=== PATIENT | male | born 1990 | race Caucasian/White ===

== ENCOUNTER 2016-09-18 17:43 | Emergency (ER) | payer OTHER ==
[~2016-09-18] VITALS: Ht 185.4 cm; Wt 77.1 kg
--- NOTE | 2016-09-18 17:55 | ED Neurological Problem ---
General Chief Complaint: Neurological Problems Stated Complaint: SEIZURE Source: patient Exam Limitations: no limitations History of Present Illness Time seen by provider: 17:53 Initial Comments To ER per EMS from home and normal with reports of seizure-like activity. This began 3 hours after taking 3 tramadol which she took for recreational purposes. He states he's done this before on several occasions without having seizures. He does not have a known seizure disorder. This is not his prescription. He does not want his parents to know about this though they are present in the waiting room. Timing/Duration: 1 week Allergies and Home Medications Allergies Coded Allergies: No Known Drug Allergies (Unverified , 09/18/16) Constitutional: see HPI Eyes: No Symptoms Reported Ears, Nose, Mouth, Throat: no symptoms reported Respiratory: no symptoms reported Cardiovascular: no symptoms reported Genitourinary: no symptoms reported Musculoskeletal: no symptoms reported Skin: no symptoms reported Psychiatric/Neurological: See HPI, Tonic Clonic Seizures Endocrine: No Symptoms Reported Physical Exam Vital Signs Vital Sign - Last 12Hours 09/18/16 17:49 Temp 97.5 Pulse 82 Resp 16 B/P (MAP) 140/86 Pulse Ox 98 Capillary Refill : General Appearance: WD/WN, no apparent distress HEENT: PERRL/EOMI, normal ENT inspection Neck: non-tender, full range of motion Respiratory: normal breath sounds, no respiratory distress, no accessory muscle use Cardiovascular: regular rate, rhythm, no murmur Gastrointestinal: normal bowel sounds, non tender, soft Extremities: normal range of motion, non-tender Neurologic/Psychiatric: alert, normal mood/affect, oriented x 3 Crainal Nerves: normal hearing, normal speech, PERRL Skin: normal color, warm/dry Progress/Results/Core Measures Results/Orders Lab Results Laboratory Tests Test 09/18/16 17:41 09/18/16 17:50 Range/Units Urine Color YELLOW Urine Clarity CLEAR Urine pH 7 5-9 Urine Specific [place] 1.010 L 1.016-1.022 Urine Protein NEGATIVE NEGATIVE Urine Glucose (UA) NEGATIVE NEGATIVE Urine Ketones NEGATIVE NEGATIVE Urine Nitrite NEGATIVE NEGATIVE Urine Bilirubin NEGATIVE NEGATIVE Urine Urobilinogen NORMAL NORMAL MG/DL Urine Leukocyte Esterase NEGATIVE NEGATIVE Urine RBC (Auto) NEGATIVE NEGATIVE Urine RBC RARE /HPF Urine WBC NONE /HPF Urine Crystals NONE /LPF Urine Bacteria NONE /HPF Urine Casts NONE /LPF Urine Mucus NEGATIVE /LPF Urine Culture Indicated NO Urine Opiates Screen NEGATIVE NEGATIVE Urine Oxycodone Screen NEGATIVE NEGATIVE Urine Methadone Screen NEGATIVE NEGATIVE Urine Propoxyphene Screen NEGATIVE NEGATIVE Urine Barbiturates Screen NEGATIVE NEGATIVE Ur Tricyclic Antidepressants Screen NEGATIVE NEGATIVE Urine Phencyclidine Screen NEGATIVE NEGATIVE Urine Amphetamines Screen NEGATIVE NEGATIVE Urine Methamphetamines Screen NEGATIVE NEGATIVE Urine Benzodiazepines Screen NEGATIVE NEGATIVE Urine Cocaine Screen NEGATIVE NEGATIVE Urine Cannabinoids Screen NEGATIVE NEGATIVE White Blood Count 6.0 4.3-11.0 10^3/uL Red Blood Count 5.07 4.35-5.85 10^6/uL Hemoglobin 15.0 13.3-17.7 G/DL Hematocrit 43 40-54 % Mean Corpuscular Volume 85 80-99 FL Mean Corpuscular Hemoglobin 30 25-34 PG Mean Corpuscular Hemoglobin Concent 35 32-36 G/DL Red Cell Distribution Width 13.1 10.0-14.5 % Platelet Count 257 130-400 10^3/uL Mean Platelet Volume 10.3 7.4-10.4 FL Neutrophils (%) (Auto) 50 42-75 % Lymphocytes (%) (Auto) 36 12-44 % Monocytes (%) (Auto) 11 0-12 % Eosinophils (%) (Auto) 2 0-10 % Basophils (%) (Auto) 1 0-10 % Neutrophils # (Auto) 3.0 1.8-7.8 X 10^3 Lymphocytes # (Auto) 2.2 1.0-4.0 X 10^3 Monocytes # (Auto) 0.7 0.0-1.0 X 10^3 Eosinophils # (Auto) 0.1 0.0-0.3 10^3/uL Basophils # (Auto) 0.0 0.0-0.1 10^3/uL Sodium Level 141 135-145 MMOL/L Potassium Level 3.6 3.6-5.0 MMOL/L Chloride Level 104 98-107 MMOL/L Carbon Dioxide Level 22 21-32 MMOL/L Anion Gap 15 H 5-14 MMOL/L Blood Urea Nitrogen 9 7-18 MG/DL Creatinine 1.07 0.60-1.30 MG/DL Estimat Glomerular Filtration Rate > 60 BUN/Creatinine Ratio 8 Glucose Level 80 70-105 MG/DL Calcium Level 8.8 8.5-10.1 MG/DL Total Bilirubin 0.5 0.1-1.0 MG/DL Aspartate Amino Transf (AST/SGOT) 27 5-34 U/L Alanine Aminotransferase (ALT/SGPT) 28 0-55 U/L Alkaline Phosphatase 84 40-136 U/L Total Protein 6.7 6.4-8.2 GM/DL Albumin 4.1 3.2-4.5 GM/DL Serum Alcohol < 10 <10 MG/DL My Orders Orders - LUCI MORALES APRN Cbc With Automated Diff (09/18/16 17:51) Comprehensive Metabolic Panel (09/18/16 17:51) Alcohol (09/18/16 17:51) Ns Iv 1000 Ml (Sodium Chloride 0.9%) (09/18/16 18:00) Lorazepam Injection (Ativan Injection) (09/18/16 18:00) Ua Culture If Indicated (09/18/16 17:51) Drug Screen Stat (Urine) (09/18/16 17:51) Ct Head Wo (09/18/16 18:24) Medications Given in ED Current Medications Medications Dose Ordered Sig/Arely Route Start Time Stop Time Status Last Admin Dose Admin Lorazepam 0.5 mg ONCE ONCE IVP 09/18/16 18:00 09/18/16 18:01 DC 09/18/16 18:08 0.5 MG Vital Signs/I&O Vital Sign - Last 12Hours 09/18/16 17:49 Temp 97.5 Pulse 82 Resp 16 B/P (MAP) 140/86 Pulse Ox 98 Diagnostic Imaging Diagonstic Imaging: Xray Comments NAME: OTTONIEL WYNN [facility] REC#: [id number] PT STATUS: REG ER : 1990 PHYSICIAN: LUCI MORALES APRN ADMIT DATE: 09/18/16/ER Draft Date of Exam:09/18/16 CT HEAD WO PROCEDURE: CT head without contrast. TECHNIQUE: Multiple contiguous axial images were obtained through the brain without the use of intravenous contrast. INDICATION: Seizure, head injury. COMPARISON: There are no prior studies available for comparison. FINDINGS: There is no mass, shift of the midline, or hemorrhage to suggest an acute intracranial abnormality. The ventricles are not abnormally dilated. The bone windows show no evidence for fracture or for destructive lesion. The orbits are symmetrical and within normal limits. The sinuses, where visualized, are clear. IMPRESSION: 1. There is no evidence for an acute intracranial abnormality. 2. If clinical concern regarding an underlying abnormality persists, then MRI would be recommended for further study. Dictated on workstation # [id number] Dict: 09/18/16 1854 Trans: 09/18/16 1900 AS6 [id number] Interpreted by: RICCARDO BENITEZ MD Electronically signed by: Departure Impression Impression: Primary Impression: Seizure-like activity Disposition: 01 HOME, SELF-CARE Condition: Stable Departure-Patient Inst. Decision time for Depature: 19:07 Referrals: NO,LOCAL PHYSICIAN (PCP/Family) Primary Care Physician Patient Instructions: NO INSTRUCTIONS GIVEN Add. Discharge Instructions: 1. No further use of Ultram as this was likely the cause of your seizure and is known to cause seizures. Do not use any medications that are not prescribed to you 2. See your doctor next week All discharge instructions reviewed with patient and/or family. Voiced understanding. LUCI MORALES MUSIC BOX MECHANIC Sep 18, 2016 17:54
[2016-09-18 17:56] LABS: BASOPHILS % (AUTO) 1 % (0-10); EOSINOPHILS # (AUTO) 0.1 10^3/uL (0.0-0.3); EOSINOPHILS % (AUTO) 2 % (0-10); LYMPHOCYTES # (AUTO) 2.2 X 10^3 (1.0-4.0); LYMPHOCYTES % (AUTO) 36 % (12-44); MEAN CORPUSCULAR HEMOGLOBIN 30 PG (25-34); MEAN CORPUSCULAR HGB CONC 35 G/DL (32-36); MEAN CORPUSCULAR VOLUME 85 FL (80-99); MEAN PLATELET VOLUME 10.3 FL (7.4-10.4); MONOCYTES # (AUTO) 0.7 X 10^3 (0.0-1.0); MONOCYTES % (AUTO) 11 % (0-12); NEUTROPHILS % (AUTO) 50 % (42-75); PLATELET COUNT 257 10^3/uL (130-400); RED BLOOD COUNT 5.07 10^6/uL (4.35-5.85); RED CELL DISTRIBUTION WIDTH 13.1 % (10.0-14.5)
[2016-09-18] MEDS ORDERED: LORazepam INJ 2 MG/ML (ATIVAN) VIAL IVP ONE (18:00)
[2016-09-18] MEDS ORDERED: NS IV 1000 ML 1,000 ML IV SCH (18:00)
[2016-09-18 18:16] LABS: ALANINE AMINOTRANSFERASE 28 U/L (0-55); ALBUMIN 4.1 GM/DL (3.2-4.5); ALCOHOL < 10 MG/DL (<10); ANION GAP 15 MMOL/L (5-14); ASPARTATE AMINO TRANSFERASE 27 U/L (5-34); BILIRUBIN,TOTAL 0.5 MG/DL (0.1-1.0); BLOOD UREA NITROGEN 9 MG/DL (7-18); BUN/CREATININE RATIO 8; CALCIUM 8.8 MG/DL (8.5-10.1); CARBON DIOXIDE 22 MMOL/L (21-32); CHLORIDE 104 MMOL/L (98-107); CREATININE SERUM 1.07 MG/DL (0.60-1.30); GFR ESTIMATED > 60; GLUCOSE 80 MG/DL (70-105); POTASSIUM 3.6 MMOL/L (3.6-5.0); SODIUM 141 MMOL/L (135-145); TOTAL PROTEIN 6.7 GM/DL (6.4-8.2)
[2016-09-18 18:49] LABS: BILIRUBIN,URINE NEGATIVE (NEGATIVE); KETONES,URINE NEGATIVE (NEGATIVE); LEUKOCYTE ESTERASE ,URINE NEGATIVE (NEGATIVE); NITRITE,URINE NEGATIVE (NEGATIVE); PH,URINE 7 (5-9); PROTEIN,URINE NEGATIVE (NEGATIVE); UROBILINOGEN,URINE NORMAL (NORMAL)
[2016-09-18 19:00] VITALS: BP 132/70
--- NOTE | 2016-09-18 19:00 | Diagnostic Imaging Report ---
PROCEDURE: CT head without contrast. TECHNIQUE: Multiple contiguous axial images were obtained through the brain without the use of intravenous contrast. INDICATION: Seizure, head injury. COMPARISON: There are no prior studies available for comparison. FINDINGS: There is no mass, shift of the midline, or hemorrhage to suggest an acute intracranial abnormality. The ventricles are not abnormally dilated. The bone windows show no evidence for fracture or for destructive lesion. The orbits are symmetrical and within normal limits. The sinuses, where visualized, are clear. IMPRESSION: 1. There is no evidence for an acute intracranial abnormality. 2. If clinical concern regarding an underlying abnormality persists, then MRI would be recommended for further study. Dictated by: Dictated on workstation # [id number]
--- OUTSIDE RECORDS SUMMARY | 2016-09-21 13:45 | XMS REPORT | Referral Summary ---
Author Author [facility] Organization [facility] Address Unknown Phone Unavailable Care Team Providers Care Marine Engine Machinist Name Role Phone Jayro Frey PCP Encounter [facility] Date(s): 07/28/15 - 07/28/15 [facility] [address] [place] [address] [facility] Discharge Disposition: 01-Home or Self Care Attending Physician: Provider, Immediate Care Admitting Physician: Provider, Immediate Care Vital Signs No data available for this section Problem List Condition Effective Dates Status Health Status Informant Asthma(Confirmed) Active Left ear lobe bit Active off(Confirmed) Chronic back Active pain(Confirmed) Drug Active addiction(Confirmed) Anxiety, Active generalized(Confirme d) Lumbar Active radiculopathy(Confir med) Sexually transmitted Active disease, chlamydia(Confirmed) Tobacco Active patient user(Confirmed) Allergies, Adverse Reactions, Alerts No Known Medication Allergies Medications busPIRone 7.5 mg oral tablet 7.5 mg 1 tabs, Oral, TID, # 90 tabs, 0 Refill(s), Pharmacy: [facility] # [id number], 1 tabs Oral BID Start Date: 07/24/15 Status: Ordered Wellbutrin XL 150 mg/24 hours oral tablet, extended release 150 mg 1 tabs, Oral, q24hr, # 30 tabs, 0 Refill(s), Pharmacy: [facility] # [id number], 1 tabs Oral q24hr,x30 days Start Date: 07/24/15 Stop Date: 08/23/15 Status: Ordered Results No data available for this section Immunizations Vaccine Date Refusal Reason tetanus/diphth/pertuss (Tdap) adult/adol 11/26/04 Procedures Procedure Date Related Diagnosis Body Site none Social History Social History Type Response Smoking Status Former smoker Assessment and Plan Future Scheduled TestsReferral* Return to Clinic 10/18/14 10:37 PM Referrals to Other Providers Referred by: Rin Morales APRN
--- OUTSIDE RECORDS SUMMARY | 2016-09-21 13:45 | XMS REPORT | Referral Summary ---
Author Author [facility] Care Organization [facility] Address Unknown Phone Unavailable Care Team Providers Care Cultural Historian Name Role Phone Jayro Frey PCP Encounter [facility] Date(s): 07/16/15 - 07/16/15 [facility] [address] [place] [address] [facility] Discharge Diagnosis: Allergic rhinitis Discharge Disposition: 01-Home or Self Care Attending Physician: Rae Jurado Attending Physician: Provider, Immediate Care Admitting Physician: Provider, Immediate Care Vital Signs Most recent to 1 oldest [Reference Range]: Temperature Oral 36.7 degC [35.8-37.3 degC] (07/16/15 6:38 PM) Peripheral Pulse 117 bpm Rate [60-100 bpm] *HI* (07/16/15 6:38 PM) Blood Pressure 132/83 mmHg [90-140/60-90 mmHg] (07/16/15 6:38 PM) SpO2 99 % (07/16/15 6:38 PM) Problem List Condition Effective Dates Status Health Status Informant Asthma(Confirmed) Active Left ear lobe bit Active off(Confirmed) Chronic back Active pain(Confirmed) Drug Active addiction(Confirmed) Anxiety, Active generalized(Confirme d) Lumbar Active radiculopathy(Confir med) Sexually transmitted Active disease, chlamydia(Confirmed) Tobacco Active patient user(Confirmed) Allergies, Adverse Reactions, Alerts No Known Medication Allergies Medications Wellbutrin XL 150 mg/24 hours oral tablet, extended release 150 mg 1 tabs, Oral, q24hr, # 10 tabs, 0 Refill(s), Pharmacy: [facility] # [id number], 1 tabs Oral q24hr,x10 days Start Date: 07/16/15 Stop Date: 07/26/15 Status: Ordered Results No data available for this section Immunizations Vaccine Date Refusal Reason tetanus/diphth/pertuss (Tdap) adult/adol 11/26/04 Procedures Procedure Date Related Diagnosis Body Site none Social History Social History Type Response Smoking Status Current every day smoker; Type: Cigarettes; Tobacco use per day: 1 Pack; Number of years: 7 Assessment and Plan Future Scheduled TestsReferral* Return to Clinic 10/18/14 10:37 PM Referrals to Other Providers Referred by: Rin Morales APRN
--- OUTSIDE RECORDS SUMMARY | 2016-09-21 13:45 | XMS REPORT | Referral Summary ---
Author Author [facility] Organization [facility] Address Unknown Phone Unavailable Care Team Providers Care Foundation Director Name Role Phone Jayro Frey PCP Encounter [facility] Date(s): 11/13/15 - 11/13/15 [facility] [address], [place] [address] Discharge Diagnosis: Other specified dermatitis Discharge Diagnosis: Other specified dermatitis Discharge Disposition: 01-Home or Self Care Attending Physician: Jayro Frey MD Admitting Physician: Jayro Frey MD Vital Signs Most recent to 1 oldest [Reference Range]: Peripheral Pulse 64 bpm Rate [60-100 bpm] (11/13/15 7:33 AM) Blood Pressure 134/82 mmHg [90-140/60-90 mmHg] (11/13/15 7:33 AM) Problem List Condition Effective Dates Status Health Status Informant Asthma(Confirmed) Active Left ear lobe bit Active off(Confirmed) Chronic back Active pain(Confirmed) Drug Active addiction(Confirmed) Anxiety, Active generalized(Confirme d) Lumbar Active radiculopathy(Confir med) Sexually transmitted Active disease, chlamydia(Confirmed) Tobacco Active patient user(Confirmed) Allergies, Adverse Reactions, Alerts No Known Medication Allergies Medications busPIRone 7.5 mg oral tablet 7.5 mg 1 tabs, Oral, BID, # 60 tabs, 2 Refill(s), Pharmacy: [facility] # [id number], 1 tabs Oral BID Start Date: 08/21/15 Status: Ordered clindamycin-benzoyl peroxide 1%-5% topical gel 1 rosemary, Topical, BID, # 50 g, 0 Refill(s), Pharmacy: [facility] #[id number] Start Date: 08/21/15 Status: Ordered clobetasol 0.05% topical ointment 1 rosemary, Topical, BID, # 30 g, 0 Refill(s), Pharmacy: [facility] #[id number] Start Date: 11/13/15 Status: Ordered naltrexone 50 mg, Oral, Daily, 0 Refill(s) Start Date: 08/21/15 Status: Ordered Wellbutrin XL 150 mg/24 hours oral tablet, extended release 150 mg 1 tabs, Oral, q24hr, # 30 tabs, 2 Refill(s), Pharmacy: [facility] # [id number], 1 tabs Oral q24hr,x30 days Start Date: 08/21/15 Stop Date: 11/19/15 Status: Ordered Results No data available for this section Immunizations Vaccine Date Refusal Reason tetanus/diphth/pertuss (Tdap) adult/adol 11/26/04 Procedures Procedure Date Related Diagnosis Body Site none Social History Social History Type Response Smoking Status Former smoker; Type: Cigarettes1 1quit 04/2015 Assessment and Plan Extracted from: Title: Ambulatory Patient Education Author: Jayro Frey MD Date: Allergy Hand Dermatitis Hand dermatitis is a skin problem. Small, itchy, raised dots or blisters appear on the palms of the hands. Hand dermatitis can last 3 to 4 weeks. HOME CARE Avoid washing your hands too much. Avoid all harsh chemicals. Wear gloves when you use products that can bother your skin. Use medicated cream (1% hydrocortisone cream) at least 2 to 4 times per day. Only take medicine as told by your doctor. You may use wet cloths (compresses) or cold packs. GET HELP RIGHT AWAY IF: The rash is not better after 1 week of treatment. The area is red, tender, or yellowish-white fluid (pus) comes from the wound. The rash is spreading. MAKE SURE YOU: Understand these instructions. Will watch your condition. Will get help right away if you are not doing well or get worse. This information is not intended to replace advice given to you by your health care provider. Make sure you discuss any questions you have with your health care provider. Document Released: 05/31/2010 Document Revised: 05/28/2012 Document Reviewed: ExitCare Patient Information 2016 [employer] [facility]. No follow up information was provided. Extracted from: Title: Hand dermatitis Author: Jayro Frey MD Date: 11/13/15 Assessment/Plan 1.Other specified dermatitis I think this is more of a mechanicaland irritative dermatitis. More from dryness and other irritants. No signs of infection. No signs of other underlyingsystemic problems. Plan: I will let him use the clobetasolointment and apply twice a day small amount and all the areas. He may also apply other moisturizers on top of this. I discussed this may take several weeks to gradually resolve. Try to keep his hands frombecomingwet and then dry multiple times by wearing gloves is needed. Otherwise I will have him return as needed. I reassured him that was no signs of other serious problems. Orders: clobetasol topical, 1 rosemary, Topical, BID, # 30 g, 0 Refill(s), Pharmacy : [facility] #[id number] Future Scheduled TestsReferral* Return to Clinic 07/30/15 9:30 AM * Return to Clinic 08/22/15 12:31 PM Referrals to Other Providers Referred by: Rin Morales APRN Referred by: Rin Morales APRN
--- OUTSIDE RECORDS SUMMARY | 2016-09-21 13:45 | XMS REPORT | Referral Summary ---
Author Author [facility] Organization [facility] Address Unknown Phone Unavailable Care Team Providers Care Composing Room Machinist Apprentice Name Role Phone Jayro Frey PCP Encounter [facility] [id number] Date(s): 08/21/15 - 08/21/15 [facility] [address], [place] [address] Discharge Diagnosis: Acne Discharge Diagnosis: Anxiety, generalized Discharge Diagnosis: Narcotic addiction Discharge Disposition: 01-Home or Self Care Attending Physician: Rin Morales APRN Admitting Physician: Rin Morales APRN Vital Signs Most recent to 1 oldest [Reference Range]: Peripheral Pulse 78 bpm Rate [60-100 bpm] (08/21/15 10:08 AM) Blood Pressure 146/74 mmHg [90-140/60-90 mmHg] *HI* (08/21/15 10:08 AM) Problem List Condition Effective Dates Status [...] BID, # 60 tabs, 2 Refill(s), Pharmacy: [facility] # [id number], 1 tabs Oral BID Start Date: 08/21/15 Status: Ordered clindamycin-benzoyl peroxide 1%-5% topical gel 1 rosemary, Topical, BID, # 50 g, 0 Refill(s), Pharmacy: [facility] #[id number] Start Date: 08/21/15 Status: Ordered naltrexone 50 mg, Oral, Daily, 0 Refill(s) Start Date: 08/21/15 Status: Ordered Wellbutrin XL 150 mg/24 hours oral tablet, extended release 150 mg 1 tabs, Oral, q24hr, # 30 tabs, 2 Refill(s), [facility] # [id number], 1 tabs Oral q24hr,x30 days Start Date: 08/21/15 Stop Date: 11/19/15 Status: Ordered Results No data available for this section Immunizations Vaccine Date Refusal Reason tetanus/diphth/pertuss (Tdap) adult/adol 11/26/04 Procedures Procedure Date Related Diagnosis Body Site none Social History Social History Type Response Smoking Status Former smoker; Type: Cigarettes1 1quit 04/2015 Assessment and Plan Future Scheduled TestsReferral* Return to Clinic 07/30/15 9:30 AM * Return to Clinic 10/18/14 10:37 PM Referrals to Other Providers Referred by: Rin Morales APRN Referred by: Rin Morales APRN
--- OUTSIDE RECORDS SUMMARY | 2016-09-21 13:45 | XMS REPORT | Referral Summary ---
Author Author [facility] Organization [facility] Address Unknown Phone Unavailable Care Team Providers Care Tail Trimmer Name Role Phone Jayro Frey PCP Encounter [facility] Date(s): 07/24/15 - 07/24/15 [facility] [address], [place] [address] Discharge Diagnosis: Compliance poor Discharge Diagnosis: History of narcotic addiction Discharge Diagnosis: Anxiety, generalized Discharge Disposition: -Home or Self Care Attending Physician: Rin Morales APRN Admitting Physician: Rin Morales APRN Vital Signs Most recent to 1 oldest [Reference Range]: Peripheral Pulse 70 bpm Rate [60-100 bpm] (07/24/15 9:17 AM) Blood Pressure 143/71 mmHg [90-140/60-90 mmHg] *HI* (07/24/15 9:17 AM) Problem List Condition Effective Dates Status [...] 1 tabs, Oral, BID, # 60 tabs, 0 Refill(s), Pharmacy: [facility] # [id number], 1 tabs Oral BID Start Date: 07/24/15 Status: Ordered Wellbutrin XL 150 mg/24 hours oral tablet, extended release 150 mg 1 tabs, Oral, q24hr, # 30 tabs, 0 Refill(s), Pharmacy: [facility] # [id number], 1 tabs Oral q24hr,x30 days Start Date: [...] Number of years: 7 Assessment and Plan Extracted from: Title: Office Visit Note-anxiety Author: Rin Morales APRN Date: 07/23 Assessment/Plan 1.Anxiety, generalized Moderate progression Plan: ContinueWellbutrin XL 150 mg daily. Buspirone 7.5 mg twice a day for anxiety.May increase to3 times a dayifnot improving. Absolutely nobenzodiazepam due to addiction problem. Patient is advised combined medication with counseling service.Psychiatric referralfor counselingis provided today. 2.History of narcotic addiction Continue work with counselingto solve the underlying issue, which is anxiety. 3.Compliance poor Compliance issue is discussed. Patient is to follow-up fordrug adjustmentas instructed. Orders: buPROPion, 150 mg 1 tabs, Oral, q24hr, # 30 tabs, 0 Refill(s), Pharmacy: [facility] #[id number], 1 tabs Oral q24hr,x30 days busPIRone, 7.5 mg 1 tabs, Oral, BID, # 60 tabs, 0 Refill(s), Pharmacy: [facility] #[id number], 1 tabs Oral BID Future Scheduled TestsReferral* Return to Clinic 10/18/14 10:37 PM Referrals to Other Providers Referred by: Rin Morales APRN Referred by: Rin Morales APRN
--- OUTSIDE RECORDS SUMMARY | 2016-09-21 13:45 | XMS REPORT | Continuity of Care Document ---
Author Author Mahdi MEANS, [facility] Amb[facility] Address [address] [place] [address] Phone Care Team Providers Care Pharmacy Student Name Role Phone Sheridan Diandra LES Unavailable Payers Payer name Insurance type Covered libertarian ID Authorization(s) Unknown Problems Condition Effective Dates (start - stop) Clinical Status Upper Respiratory Infection, Acute - *Acute Annual physical exam - *Routine Depression - *Worse Unspecified drug dependence, unspecified use - *Worse Depression - Improved Drug addiction - *Worse Family History Family Member Diagnosis Age At Onset Status Father (Unknown) DRUG ADDICTION Yes Maternal uncle (Unknown) Diabetes Yes Maternal grandfather (Unknown) CAD Yes Social History Social History Element Description Quantity alcohol Allergies, Adverse Reactions, Alerts Substance Reaction Severity Status Unknown Medications Medication Instructions Dosage Effective Dates (start - stop) Status naltrexone 50 mg tablet take 1 tablet (50MG) by oral route every day 50 MG - Active promethazine-DM 6.25 mg-15 mg/5 mL syrup take 5 milliliter by oral route every 6 hours as needed 0 - Active Lexapro 20 mg tablet take .5 pill qd for one week then 1 po q d 2012 - Active Immunizations Vaccine Date Status Comments Tdap (Adacel ) completed - Completed reason: source unspecified Results Test Name Date and Time Measure Units Reference Range Abnormal Flag Comments Unknown Vital Signs Date / Time: Height Weight Pulse Rate Blood Pressure Temperature /15:37:00 72.00 in 164.00 lbs 71 /min 145/82 mm[Hg] 98.8 F Procedures Procedure Date Unknown Encounters Encounter Location Date Patient Visit [facility] Care Patient Visit [address] Patient Visit [address] Patient Visit Conversion Advance Directives Directive Effective Date Unknown
--- OUTSIDE RECORDS SUMMARY | 2016-09-21 13:45 | XMS REPORT | Referral Summary ---
Author Author [facility] Organization [facility] Address Unknown Phone Unavailable Care Team Providers Care Reinforcing Steel Machine Operator Name Role Phone Jayro Frey PCP Encounter [facility] Date(s): 07/30/15 - 07/30/15 [facility] [address], [place] [address] Discharge Diagnosis: Opiate addiction Discharge Disposition: 01-Home or Self Care Attending Physician: Rin Morales APRN Admitting Physician: Rin Morales APRN Vital Signs Most recent to 1 oldest [Reference Range]: Peripheral Pulse 68 bpm Rate [60-100 bpm] (07/30/15 8:40 AM) Blood Pressure 134/78 mmHg [90-140/60-90 mmHg] (07/30/15 8:40 AM) SpO2 98 % (07/30/15 8:40 AM) Problem List Condition Effective Dates Status [...] TID, # 90 tabs, 0 Refill(s), Pharmacy: [facility] # [id number], 1 tabs Oral BID Start Date: 07/24/15 Status: Ordered Wellbutrin XL 150 mg/24 hours oral tablet, extended release 150 mg 1 tabs, Oral, q24hr, # 30 tabs, 0 Refill(s), Pharmacy: [facility] # [id number], 1 tabs Oral q24hr,x30 days Start Date: 07/24/15 Stop Date: 08/23/15 Status: Ordered Results No data available for this section Immunizations Vaccine Date Refusal Reason tetanus/diphth/pertuss (Tdap) adult/adol 11/26/04 Procedures Procedure Date Related Diagnosis Body Site none Social History Social History Type Response Smoking Status Former smoker; Type: Cigarettes1 1quit 04/2015 Assessment and Plan Extracted from: Title: Office Visit Note-opiates Author: Rin Morales APRN Date: 03/04 addiction Assessment/Plan 1.Opiate addiction Discuss this with Dr. Frey, who does not feel comfortable manage the patient's chronic addictionwith naltrexone. Patient is recommendedto get it managed through anoutpatientaddiction program, where he can be monitoredfrequently to avoid drug inducedcomplications. Patient verbalizes understanding. Future Scheduled TestsReferral* Return to Clinic 07/30/15 9:30 AM * Return to Clinic 10/18/14 10:37 PM Referrals to Other Providers Referred by: Rin Morales APRN Referred by: Rin Morales APRN
--- OUTSIDE RECORDS SUMMARY | 2016-09-21 13:46 | XMS REPORT | Referral Summary ---
Author Author [facility] Organization [facility] Address Unknown Phone Unavailable Care Team Providers Care Plant Guard Name Role Phone Jayro Frey PCP Encounter [facility] [id number] Date(s): 10/17/14 - 10/17/14 [facility] [address], [place] [address] Discharge Diagnosis: Lumbar radiculopathy Discharge Diagnosis: Eczema of hand Discharge Diagnosis: Encounter to establish care Discharge Diagnosis: Anxiety, generalized Discharge Diagnosis: Tobacco user Discharge Diagnosis: Chronic back pain Discharge Disposition: 01-Home or Self Care Attending Physician: Rin Morales APRN Admitting Physician: Rin Morales APRN Vital Signs Most recent to 1 oldest [Reference Range]: Peripheral Pulse 68 bpm Rate [60-100 bpm] (10/17/14 8:57 AM) Blood Pressure 106/64 mmHg [90-140/60-90 mmHg] (10/17/14 8:57 AM) Problem List Condition Effective Dates Status Health Status Informant Asthma(Confirmed) Active Left ear lobe bit Active off(Confirmed) Chronic back Active pain(Confirmed) Drug Active addiction(Confirmed) Anxiety, Active generalized(Confirme d) Lumbar Active radiculopathy(Confir med) Sexually transmitted Active disease, chlamydia(Confirmed) Tobacco Active patient user(Confirmed) Allergies, Adverse Reactions, Alerts No Known Medication Allergies Medications cyclobenzaprine 10 mg oral tablet 10 mg 1 tabs, Oral, TID, as needed for spasm, # 30 tabs, 0 Refill(s), Pharmacy: [facility] #[id number], 1 tabs Oral TID,PRN:as needed for spasm Start Date: 10/17/14 Status: Ordered Lexapro 10 mg oral tablet 10 mg 1 tabs, Oral, Daily, # 30 tabs, 11 Refill(s), Pharmacy: [facility] # [id number], 1 tabs Oral Daily Start Date: 11/04/14 Status: Ordered triamcinolone 0.1% topical ointment 1 rosemary, Topical, BID, to affected area, # 60 g, 0 Refill(s), Pharmacy: [facility] #[id number] Start Date: 10/17/14 Status: Ordered Results No data available for this section Immunizations Vaccine Date Refusal Reason tetanus/diphth/pertuss (Tdap) adult/adol 11/26/04 Procedures Procedure Date Related Diagnosis Body Site none Social History Social History Type Response Smoking Status Current every day smoker; Type: Cigarettes; Tobacco use per day: 1 Pack; Number of years: 7 Assessment and Plan Extracted from: Title: Office Visit Note-fu chronic Author: Rin Morales APRN Date: 10/17/14 back pain Assessment/Plan 1.Encounter to establish care We'll follow-up patient on the as-needed basis. 2.Chronic back pain Chronic. 1. Start F [id number] mg 3 times a day as needed. Avoid hot tub while on Flexeril. Patient is explained that this medication may cause drowsiness. Fall precaution discussed. 2. Continue tramadol 50 mg twice a day with quantity of 60 tablets a month for pain. 3. Continue heating pad. 4. sciatica exercise sheet provided. 5. Lumbosacral x-ray ordered to rule out causes for radiculopathy. Patient is to call back if symptoms does not improving in 6 to 8 weeks. Lumbar MRI and physical therapy may be suggested. 3.Lumbar radiculopathy Lumbosacral x-ray ordered to rule out causes for radiculopathy. 4.Anxiety, generalized Continue Lexapro 10 mg daily. 5.Eczema of hand Triamcinolone ointment as prescribed. 6.Tobacco user Encouraged smoking cessation. Future Scheduled TestsReferral* Return to Clinic 10/18/14 10:37 PM Referrals to Other Providers Referred by: Rin Morales APRN
--- OUTSIDE RECORDS SUMMARY | 2016-09-21 13:46 | XMS REPORT | Referral Summary ---
Author Author [facility] Organization [facility] Address Unknown Phone Unavailable Care Team Providers Care Service Developer Name Role Phone Jayro Frey PCP Encounter Date(s): 09/17/14 - 09/17/14 [facility] [address] [place] [address] [facility] Discharge Diagnosis: Narcotic abuse in remission Discharge Diagnosis: Lumbar back pain Discharge Diagnosis: Anxiety Discharge Disposition: -Home or Self Care Attending Physician: Merle Jessica PA-C Attending Physician: Provider, Immediate Care Admitting Physician: Provider, Immediate Care Vital Signs Most recent to 1 oldest [Reference Range]: Peripheral Pulse 82 bpm Rate [60-100 bpm] (09/17/14 12:33 PM) Respiratory Rate 16 br/min [14-20 br/min] (09/17/14 12:33 PM) Blood Pressure 127/78 mmHg [90-140/60-90 mmHg] (09/17/14 12:33 PM) SpO2 97 % (09/17/14 12:33 PM) Problem List Condition Effective Dates Status [...] spasm, # 30 tabs, 0 Refill(s), Pharmacy: [facility] #[id number], 1 tabs Oral TID,PRN:as needed for spasm Start Date: 10/17/14 Status: Ordered Lexapro 10 mg oral tablet 10 mg 1 tabs, Oral, Daily, # 30 tabs, 11 Refill(s), Pharmacy: [facility] # [id number], 1 tabs Oral Daily Start Date: 11/04/14 Status: Ordered triamcinolone 0.1% topical ointment 1 rosemary, Topical, BID, to affected area, # 60 g, 0 Refill(s), Pharmacy: [facility] #[id number] Start Date: 10/17/14 Status: Ordered Results No data available for this section Immunizations Vaccine Date Refusal Reason tetanus/diphth/pertuss (Tdap) adult/adol 11/26/04 Procedures Procedure Date Related Diagnosis Body Site none Social History Social History Type Response Smoking Status Current every day smoker; Type: Cigarettes; Tobacco use per day: 1 Pack; Number of years: 7 Assessment and Plan Extracted from: Title: Ambulatory Patient Education Author: Merle Jessica PA-C Date: Family Medicine Back Exercises These exercises may help you when beginning to rehabilitate your injury. Your symptoms may resolve with or without further involvement from your physician, physical therapist or sharepoint trainer. While completing these exercises, remember: Restoring tissue flexibility helps normal motion to return to the joints. This allows healthier, less painful movement and activity. An effective stretch should be held for at least 30 seconds. A stretch should never be painful. You should only feel a gentle lengthening or release in the stretched tissue. STRETCH Extension, Prone on Elbows Lie on your stomach on the floor, a bed will be too soft. Place your palms about shoulder width apart and at the height of your head. Place your elbows under your shoulders. If this is too painful, stack pillows under your chest. Allow your body to relax so that your hips drop lower and make contact more completely with the floor. Hold this position for seconds. Slowly return to lying flat on the floor. Repeat times. Complete this exercise times per day. RANGE OF MOTION Extension, Prone Press Ups Lie on your stomach on the floor, a bed will be too soft. Place your palms about shoulder width apart and at the height of your head. Keeping your back as relaxed as possible, slowly straighten your elbows while keeping your hips on the floor. You may adjust the placement of your hands to maximize your comfort. As you gain motion, your hands will come more underneath your shoulders. Hold this position seconds. Slowly return to lying flat on the floor. Repeat times. Complete this exercise times per day. RANGE OF MOTION- Quadruped, Neutral Spine Assume a hands and knees position on a firm surface. Keep your hands under your shoulders and your knees under your hips. You may place padding under your knees for comfort. Drop your head and point your tail bone toward the ground below you. This will round out your low back like an angry cat. Hold this position for _ seconds. Slowly lift your head and release your tail bone so that your back sags into a large arch, like an old horse. Hold this position for seconds. Repeat this until you feel limber in your low back. Now, find your "sweet spot." This will be the most comfortable position somewhere between the two previous positions. This is your neutral spine. Once you have found this position, tense your stomach muscles to support your low back. Hold this position for seconds. Repeat times. Complete this exercise times per day. STRETCH Flexion, Single Knee to Chest Lie on a firm bed or floor with both legs extended in front of you. Keeping one leg in contact with the floor, bring your opposite knee to your chest. Hold your leg in place by either grabbing behind your thigh or at your knee. Pull until you feel a gentle stretch in your low back. Hold seconds. Slowly release your grasp and repeat the exercise with the opposite side. Repeat times. Complete this exercise times per day. STRETCH - Hamstrings, Standing Stand or sit and extend your right / left leg, placing your foot on a chair or foot stool Keeping a slight arch in your low back and your hips straight forward. Lead with your chest and lean forward at the waist until you feel a gentle stretch in the back of your right / left knee or thigh. (When done correctly, this exercise requires leaning only a small distance.) Hold this position for seconds. Repeat times. Complete this stretch times per day. STRENGTHENING Deep Abdominals, Pelvic Tilt Lie on a firm bed or floor. Keeping your legs in front of you, bend your knees so they are both pointed toward the ceiling and your feet are flat on the floor. Tense your lower abdominal muscles to press your low back into the floor. This motion will rotate your pelvis so that your tail bone is scooping upwards rather than pointing at your feet or into the floor. With a gentle tension and even breathing, hold this position for seconds. Repeat times. Complete this exercise times per day. STRENGTHENING Abdominals, Crunches Lie on a firm bed or floor. Keeping your legs in front of you, bend your knees so they are both pointed toward the ceiling and your feet are flat on the floor. Cross your arms over your chest. Slightly tip your chin down without bending your neck. Tense your abdominals and slowly lift your trunk high enough to just clear your shoulder blades. Lifting higher can put excessive stress on the low back and does not further strengthen your abdominal muscles. Control your return to the starting position. Repeat times. Complete this exercise times per day. STRENGTHENING Quadruped, Opposite UE/LE Lift Assume a hands and knees position on a firm surface. Keep your hands under your shoulders and your knees under your hips. You may place padding under your knees for comfort. Find your neutral spine and gently tense your abdominal muscles so that you can maintain this position. Your shoulders and hips should form a rectangle that is parallel with the floor and is not twisted. Keeping your trunk steady, lift your right hand no higher than your shoulder and then your left leg no higher than your hip. Make sure you are not holding your breath. Hold this position seconds. Continuing to keep your abdominal muscles tense and your back steady, slowly return to your starting position. Repeat with the opposite arm and leg. Repeat times. Complete this exercise times per day. Document Released: 03/24/2006 Document Revised: 05/28/2012 Document Reviewed: [facility] Patient Information 2014 [employer] [facility]. No follow up information was provided. Extracted from: Title: Office Visit Note Author: Merle Jessica PA-C Date: 09/17/14 Assessment/Plan Anxiety Discussed with patient that he should not abruptly stop SSRIs. Lexapro 10 mg daily was restarted. We will refer him to primary care for further evaluation of anxiety, and possibly taper off of SSRI. An appointment was made with Dr. Sanchez on October 03 at 1040 a.m. Ordered: cyclobenzaprine, 10 mg 1 tabs, Oral, TID, as needed for spasm, X 7 days, # 21 tabs, 0 Refill(s), Pharmacy: [email or web address] #[id number], 1 tabs Oral TID,x7 days, PRN:as needed for spasm traMADol, 50 mg 1 tabs, Oral, q4hr, as needed for pain, X 3 days, # 15 tabs, 0 Refill(s) Lumbar back pain Chronic, likely musculoskeletal. He does appear to have recent exacerbation. Discussed with patient that tramadol is a narcotic, but he may use 1 every 4 hours as needed number 15. He is to be extremely careful with this due to prior history of narcotic addiction. Cyclobenzaprine 10 mg one 3 times a day as needed. Educational handout was provided reviewing stretches and exercises. Discussed the importance of stretching to help prevent long-term issues. Ordered: cyclobenzaprine, 10 mg 1 tabs, Oral, TID, as needed for spasm, X 7 days, # 21 tabs, 0 Refill(s), Pharmacy: [email or web address] #[id number], 1 tabs Oral TID,x7 days, PRN:as needed for spasm traMADol, 50 mg 1 tabs, Oral, q4hr, as needed for pain, X 3 days, # 15 tabs, 0 Refill(s) Narcotic abuse in remission Monitor closely. He states that he has taken tramadol in the past for his back pain. It does not cause a high for him, and that is the only pain medication that works that he is not fearful for relapse. Review of his K tracks reveal a couple refills last fall, but no refills in the last 6 months or more. It is because of this, refills given. Discussed with patient, that we do not typically refill chronic pain medication, and this will be a one-time occurrence. Questions were answered. Patient verbalized understanding. Patient left in stable condition. Ordered: cyclobenzaprine, 10 mg 1 tabs, Oral, TID, as needed for spasm, X 7 days, # 21 tabs, 0 Refill(s), Pharmacy: [facility] #[id number], 1 tabs Oral TID,x7 days, PRN:as needed for spasm traMADol, 50 mg 1 tabs, Oral, q4hr, as needed for pain, X 3 days, # 15 tabs, 0 Refill(s) Orders: escitalopram, 10 mg 1 tabs, Oral, Daily, # 30 tabs, 0 Refill(s), Pharmacy: [facility] #[id number], 1 tabs Oral Daily,x30 days Future Scheduled TestsReferral* Return to Clinic 10/18/14 10:37 PM Referrals to Other Providers Referred by: Rin Morales APRN
== END 2016-09-18 19:15 | disposition home or self-care (01) ==
LOC: ER 17:45
DX: R25.8 Other abnormal involuntary movements (principal)
CPT/HCPCS: 36415; 70450; 80053; 80306; 80320; 81000; 85025; 99283

== ENCOUNTER 2017-05-07 12:54 | Emergency (ER) | payer BC ==
[~2017-05-07] VITALS: Ht 185.4 cm; Wt 68.0 kg
--- OUTSIDE RECORDS SUMMARY | 2017-05-07 13:00 | XMS REPORT ---
Author Author JUAN ARTHUR Organization [facility] Address [address] [place] [address] Care Team Providers Care Senior Mobile Solutions Architect Name Role Phone JUAN ARTHUR Unavailable PROBLEMS Type Condition ICD9-CM Code [id number] Code Onset Dates Condition Status SNOMED Code Problem Dental examination Z01.20 Active 223956656 ALLERGIES No Known Allergies SOCIAL HISTORY Never Assessed PLAN OF CARE Activity Details Follow Up 6 Months Reason:recare VITAL SIGNS Blood pressure systolic 129 mmHg 2016-05-20 Blood pressure diastolic 70 mmHg 2016-05-20 MEDICATIONS Medication Instructions Dosage Frequency Start Date End Date Duration Status Celexa 20 MG Orally Once a day 1 tablet 24h Active RESULTS No Results PROCEDURES Procedure Date Ordered Result Body Site INTRAORL-PERIAPICAL 1 FILM 08408 May 20, 2016 INTRAORL-PERIAPICAL EA ADD FILM May 20, 2016 BITEWINGS - FOUR FILMS May 20, 2016 INTRAORL-PERIAPICAL EA ADD FILM May 20, 2016 TOPICAL FLUORIDE VARNISH May 20, 2016 PROPHYLAXIS - ADULT May 20, 2016 IMMUNIZATIONS No Known Immunizations MEDICAL (GENERAL) HISTORY Type Description Date Medical History anxiety
--- OUTSIDE RECORDS SUMMARY | 2017-05-07 13:01 | XMS REPORT | Continuity of Care Document ---
Author Author [facility] Organization [facility] Address Unknown Phone Unavailable Allergies Active Description Code Type Severity Reaction Onset Reported/Identified Relationship to Patient Clinical Status Yes No Known Contrast Allergies Drug Allergy Unknown N/A 07/21/2008 Yes No Known Drug Allergies Drug Allergy Unknown N/A 07/21/2008 Yes No Known Food Allergies Drug Allergy Unknown N/A 07/21/2008 Yes NO KNOWN LATEX ALLERGY/SENSITI Drug Allergy Unknown N/A 07/21/2008 Yes No Known Drug Intolerances Drug Allergy Unknown N/A 09/24/2008 Yes No Known Allergies No Known Allergies Drug Allergy Unknown N/A 2013 Yes No Known Medication Allergies NKMA N/A N/A 10/25/2013 Medications There is no data. Problems Date Dx Coded Attending Type Code Diagnosis Diagnosed By 07/24/2015 Rin Morales Final F11.21 Opioid dependence, in remission 07/24/2015 Rin Morales Final F41.1 Generalized anxiety disorder 07/25/2015 Rin Morales Final Z91.19 Patient''s noncompliance with other medical treatment and regimen 07/30/2015 Rin Morales Final F11.20 Opioid dependence, uncomplicated 08/21/2015 Rin Morales Final F41.1 Generalized anxiety disorder 08/21/2015 Rin Morales Final F11.20 Opioid dependence, uncomplicated 08/21/2015 Rin Morales Final L70.0 Acne vulgaris 08/21/2015 Rin Morales Final L70.9 Acne, unspecified 11/13/2015 Jayro Frey Final L30.8 Other specified dermatitis 11/13/2015 Jayro Frey Final L30.9 Dermatitis, unspecified 11/13/2015 Jayro Frey Final L30.8 Other specified dermatitis Procedures Code [place] [address] Office or other outpatient visit for the evaluation and management of an established patient, which requires at least 2 of these 3 burks components: A detailed history; A detailed examination; Medical d 07/24/2015 89111 Office or other outpatient visit for the evaluation and management of an established patient, which requires at least 2 of these 3 burks components: An expanded problem focused history; An expanded prob 07/30/2015 68134 Office or other outpatient visit for the evaluation and management of an established patient, which requires at least 2 of these 3 burks components: A detailed history; A detailed examination; Medical d 08/21/2015 23195 Office or other outpatient visit for the evaluation and management of an established patient, which requires at least 2 of these 3 burks components: An expanded problem focused history; An expanded prob 11/13/2015 Results There is no data. Encounters ACCT No. Visit Date/Time Discharge Status Pt. Type Provider Facility Loc./Unit Complaint [id number] 03/25/2013 15:34:00 03/25/2013 23:59:59 CLS Outpatient [id number] 10/07/2013 22:51:00 10/08/2013 00:55:00 DIS Emergency Ruiz MEANS, Michael Danielle [facility] W.EDS [id number] 07/12/2013 21:55:00 07/12/2013 23:47:00 DIS Emergency Boone Duarte DO [facility] W.RODGER [id number] 11/13/2015 07:24:00 11/13/2015 23:59:00 DIS Outpatient Jayro Frey [facility] IM rash [id number] 08/21/2015 10:07:00 08/21/2015 23:59:00 DIS Outpatient Rin Morales [facility] IM MEDICATION FOLLOW UP [id number] 07/30/2015 08:33:00 07/30/2015 23:59:00 DIS Outpatient Rin Morales [facility] IM med check [id number] 07/28/2015 16:39:00 07/28/2015 23:59:00 DIS Outpatient [facility] Mur IC MEDICATION [id number] 07/24/2015 08:51:00 07/24/2015 23:59:00 DIS Outpatient Rin Morales [facility] IM MED CONTINUATION [id number] 07/16/2015 18:29:00 07/16/2015 23:59:00 DIS Outpatient Rae Jurado [facility] IC COLD [id number] 10/17/2014 08:47:00 10/17/2014 23:59:00 DIS Outpatient Rin Morales [facility] IM NPT/Anxiety [id number] 09/17/2014 12:23:00 09/17/2014 23:59:00 DIS Outpatient Merle Jessica [facility] IC ANXIETY [id number] 03/04/2014 16:44:00 03/04/2014 23:59:00 DIS Outpatient Dorothy Hernandez [facility] IC RASH RT ARM
--- NOTE | 2017-05-07 14:03 | ED Cardiac General ---
History of Present Illness General Chief Complaint: Cardiac/General Problems Stated Complaint: IRREGULAR HEART RATE Nursing Triage Note: c/o heart palpitations. Onset yesterday. Claims he started suboxone on Monday and increased his dose to 16 mg. Denies chest pain currently. Source: patient Exam Limitations: no limitations History of Present Illness Date Seen by Provider: May 07, 2017 Time Seen by Provider: 13:50 Initial Comments Here with report of palpitations. He is concerned that the palpitations are related to an increase in his Suboxone from 8 mg to 16 mg. He only took 8 mg dose today because of those concerns. Denies chest pain otherwise, breathing problems, diaphoresis or other problems. Timing/Duration: 24 hours, intermittent Severity: mild Location: central Prior CP/Workup: no prior chest pain NTG SL SCANNING CLERK: No ASA po SCANNING CLERK: No Associated Systoms: No Chest Pain, No Diaphoresis, No Fever/Chills, No Nausea/ Vomiting, No Shortness of Air, No Weakness Allergies and Home Medications Allergies Coded Allergies: No Known Drug Allergies (Unverified , 05/07/17) Home Medications Unable to Obtain Active Prescriptions or Reported Meds Review of Systems Constitutional: no symptoms reported Respiratory: No Symptoms Reported Cardiovascular: See HPI, Denies Lightheadedness, Palpitations Gastrointestinal: No Symptoms Reported Musculoskeletal: no symptoms reported Psychiatric/Neurological: No Symptoms Reported Endocrine: No Symptoms Reported Past Kmlldoc-Iaorlo-Pyzmsu Hx Patient Social History Alcohol Use: Denies Use Recreational Drug Use: No Smoking Status: Never a Smoker Type Used: Smokeless Tobacco Recent Foreign Travel: No Contact w/Someone Who Travel: No Recent Infectious Disease Expo: No Surgeries History of Surgeries: No Respiratory History of Respiratory Disorde: No Cardiovascular History of Cardiac Disorders: No Neurological History of Neurological Disord: No Psychosocial History of Psychiatric Problem: Yes Behavioral Health Disorders: Depression Reviewed Nursing Assessment Reviewed/Agree w Nursing PMH: Yes Family Medical History Significant Family History: No Pertinent Family Hx Physical Exam Vital Signs Vital Signs - First Documented 05/07/17 13:38 Temp 98.2 Pulse 68 Resp 16 B/P (MAP) 136/75 (95) Pulse Ox 98 O2 Delivery Room Air Capillary Refill : Less Than 3 Seconds General Appearance: No Apparent Distress, WD/WN HEENT: PERRL/EOMI, Pharynx Normal Neck: Non Tender, Supple Respiratory: Lungs Clear, Normal Breath Sounds Cardiovascular: Regular Rate, Rhythm, No Murmur Gastrointestinal: Non Tender, Soft Extremity: Normal Inspection, Normal Range of Motion, Non Tender Neurologic/Psychiatric: Alert, Oriented x3 Skin: Normal Color, Warm/Dry Progress/Results/Core Measures Results/Orders Lab Results Laboratory Tests Test 05/07/17 14:05 Range/Units White Blood Count 4.3 4.3-11.0 10^3/uL Red Blood Count 4.25 L 4.35-5.85 10^6/uL Hemoglobin 12.8 L 13.3-17.7 G/DL Hematocrit 36 L 40-54 % Mean Corpuscular Volume 84 80-99 FL Mean Corpuscular Hemoglobin 30 25-34 PG Mean Corpuscular Hemoglobin Concent 36 32-36 G/DL Red Cell Distribution Width 12.1 10.0-14.5 % Platelet Count 237 130-400 10^3/uL Mean Platelet Volume 10.3 7.4-10.4 FL Neutrophils (%) (Auto) 51 42-75 % Lymphocytes (%) (Auto) 34 12-44 % Monocytes (%) (Auto) 10 0-12 % Eosinophils (%) (Auto) 4 0-10 % Basophils (%) (Auto) 1 0-10 % Neutrophils # (Auto) 2.2 1.8-7.8 X 10^3 Lymphocytes # (Auto) 1.5 1.0-4.0 X 10^3 Monocytes # (Auto) 0.4 0.0-1.0 X 10^3 Eosinophils # (Auto) 0.2 0.0-0.3 10^3/uL Basophils # (Auto) 0.0 0.0-0.1 10^3/uL Sodium Level 139 135-145 MMOL/L Potassium Level 4.2 3.6-5.0 MMOL/L Chloride Level 105 98-107 MMOL/L Carbon Dioxide Level 25 21-32 MMOL/L Anion Gap 9 5-14 MMOL/L Blood Urea Nitrogen 19 H 7-18 MG/DL Creatinine 0.89 0.60-1.30 MG/DL Estimat Glomerular Filtration Rate > 60 BUN/Creatinine Ratio 21 Glucose Level 89 70-105 MG/DL Calcium Level 8.8 8.5-10.1 MG/DL Magnesium Level 2.0 1.8-2.4 MG/DL Total Bilirubin 0.3 0.1-1.0 MG/DL Aspartate Amino Transf (AST/SGOT) 24 5-34 U/L Alanine Aminotransferase (ALT/SGPT) 14 0-55 U/L Alkaline Phosphatase 91 40-136 U/L Troponin I < 0.30 <0.30 NG/ML Total Protein 6.3 L 6.4-8.2 GM/DL Albumin 4.1 3.2-4.5 GM/DL Thyroid Stimulating Hormone (TSH) 0.47 0.35-4.94 UIU/ML My Orders Orders - CECIL COFFMAN MD Ekg Tracing (05/07/17 12:56) Cbc With Automated Diff (05/07/17 13:57) Comprehensive Metabolic Panel (05/07/17 13:57) Magnesium (05/07/17 13:57) Thyroid Stimulating Hormone (05/07/17 13:57) Troponin I (05/07/17 13:57) Vital Signs/I&O Vital Sign - Last 12Hours 05/07/17 13:38 Temp 98.2 Pulse 68 Resp 16 B/P (MAP) 136/75 (95) Pulse Ox 98 O2 Delivery Room Air Blood Pressure Mean: 95 Progress Note : Progress Note Seen and evaluated. EKG done which was normal. Occasional PVC noted on monitor. We will check some basic labs otherwise no concerning findings at this point. Monitor patient. 1503: No acute findings. We will send Dr. Claire a copy of the chart. I did discuss all the results with the patient. Discharged home with return precautions. Patient verbalize understanding of instructions and agreement with plan. ECG Initial ECG Impression Date: May 07, 2017 Initial ECG Impression Time: 13:02 Initial ECG Rate: 64 Initial ECG Rhythm: Normal Sinus Initial ECG Impression: Normal Initial ECG Comparisson: No Previous ECG Available Comment Sinus rhythm with normal axis. No evidence of ST elevation NM. No previous available for comparison. Interpreted by me. Departure Impression Impression: Primary Impression: Heart palpitations Additional Impression: Premature ventricular contractions (PVCs) (VPCs) Disposition: 01 HOME, SELF-CARE Condition: Improved Departure-Patient Inst. Referrals: KAROLINA GARAY MD, JULIE A MD (PCP/Family) Primary Care Physician Patient Instructions: Palpitations (DC), Ventricular Premature Beats Add. Discharge Instructions: All discharge instructions reviewed with patient and/or family. Voiced understanding. Follow-up with your doctor this week for recheck and further evaluation. You may also follow-up with the change agent listed. Call Dr. Claire in the morning for recheck and further evaluation and to discuss your Suboxone dosing. Return for worse pain, fever, vomiting, weakness, breathing problems or other concerns as needed. Scripts Unable to Obtain Active Prescriptions or Reported Meds Copy Copies To 1: PHYLLIS CLAIRE MD, TIMOTHY D MD May 07, 2017 14:03
[2017-05-07 14:17] LABS: BASOPHILS % (AUTO) 1 % (0-10); EOSINOPHILS # (AUTO) 0.2 10^3/uL (0.0-0.3); EOSINOPHILS % (AUTO) 4 % (0-10); HEMATOCRIT 36 % (40-54); HEMOGLOBIN 12.8 G/DL (13.3-17.7); LYMPHOCYTES # (AUTO) 1.5 X 10^3 (1.0-4.0); LYMPHOCYTES % (AUTO) 34 % (12-44); MEAN CORPUSCULAR HEMOGLOBIN 30 PG (25-34); MEAN CORPUSCULAR HGB CONC 36 G/DL (32-36); MEAN CORPUSCULAR VOLUME 84 FL (80-99); MEAN PLATELET VOLUME 10.3 FL (7.4-10.4); MONOCYTES # (AUTO) 0.4 X 10^3 (0.0-1.0); MONOCYTES % (AUTO) 10 % (0-12); NEUTROPHILS # (AUTO) 2.2 X 10^3 (1.8-7.8); NEUTROPHILS % (AUTO) 51 % (42-75); PLATELET COUNT 237 10^3/uL (130-400); RED BLOOD COUNT 4.25 10^6/uL (4.35-5.85); RED CELL DISTRIBUTION WIDTH 12.1 % (10.0-14.5); WHITE BLOOD COUNT 4.3 10^3/uL (4.3-11.0)
[2017-05-07 14:37] LABS: ALANINE AMINOTRANSFERASE 14 U/L (0-55); ALBUMIN 4.1 GM/DL (3.2-4.5); ALKALINE PHOSPHATASE 91 U/L (40-136); BILIRUBIN,TOTAL 0.3 MG/DL (0.1-1.0); BUN/CREATININE RATIO 21; CALCIUM 8.8 MG/DL (8.5-10.1); CARBON DIOXIDE 25 MMOL/L (21-32); CHLORIDE 105 MMOL/L (98-107); CREATININE SERUM 0.89 MG/DL (0.60-1.30); GFR ESTIMATED > 60; GLUCOSE 89 MG/DL (70-105); POTASSIUM 4.2 MMOL/L (3.6-5.0); SODIUM 139 MMOL/L (135-145); TOTAL PROTEIN 6.3 GM/DL (6.4-8.2)
[2017-05-07 15:09] VITALS: BP 132/72
== END 2017-05-07 15:09 | disposition home or self-care (01) ==
LOC: EDUNIT# 12:54 → ER 12:56
DX: I49.3 Ventricular premature depolarization (principal); F32.9 Major depressive disorder, single episode, unspecified
CPT/HCPCS: 36415; 80053; 83735; 84443; 84484; 85025; 93005

== ENCOUNTER 2017-11-22 10:52 | Emergency (ER) | payer BC ==
[~2017-11-22] VITALS: Ht 185.4 cm; Wt 67.1 kg
--- NOTE | 2017-11-22 11:23 | ED Chest Pain ---
General Chief Complaint: Chest Pain Stated Complaint: CHEST PAIN Source: patient Exam Limitations: no limitations History of Present Illness Date Seen by Provider: Nov 22, 2017 Time Seen by Provider: 11:19 Initial Comments To ER with reports of chest pain. This began last night. The chest pain is left sternal border, sharp and comes about with deep breathing. He also has persistent intermittent palpitations. He's been seen here before for this and never followed up as he was advised to, he states. Primary care is Dr. Phyllis Claire. He is on Suboxone. He also states that he would like to see urology because he has troubles with erectile dysfunction when he is taking the Suboxone Timing/Duration: intermittent Severity/Quality: moderate Location: central ASA po CALL CENTER SPECIALIST: No NTG SL CALL CENTER SPECIALIST: No Associated Symptoms: No shortness of breath Allergies and Home Medications Allergies Coded Allergies: No Known Drug Allergies (Unverified , 05/07/17) Home Medications Unable to Obtain Active Prescriptions or Reported Meds Patient Home Medication List Home Medication List Reviewed: Yes Review of Systems Review of Systems Constitutional: see HPI; No chills, No fever EENTM: No Symptoms Reported Respiratory: No Symptoms Reported Cardiovascular: See HPI, Chest Pain, Irregular Heart Rate, Palpitations Gastrointestinal: No Symptoms Reported Genitourinary: See HPI, Other (erectile dysfunction) Musculoskeletal: no symptoms reported Skin: no symptoms reported Psychiatric/Neurological: No Symptoms Reported Endocrine: No Symptoms Reported Past Fvoxian-Pnqhxp-Kclbho Hx Patient Social History Type Used: Smokeless Tobacco 2nd Hand Smoke Exposure: No Recent Foreign Travel: No Contact w/Someone Who Travel: No Past Medical History Surgeries: No Respiratory: No Cardiac: No Neurological: No Genitourinary: No Gastrointestinal: No Musculoskeletal: No Endocrine: No HEENT: No Cancer: No Psychosocial: Yes Depression Integumentary: No Family Medical History No Pertinent Family Hx Physical Exam Vital Signs Vital Signs - First Documented Capillary Refill : Height, Weight, BMI Height: 6'1.00" Weight: 150lbs. oz. 68.966894ce; BMI Method:Stated General Appearance: No Apparent Distress, WD/WN, Thin HEENT: PERRL/EOMI, TMs Normal Neck: Full Range of Motion, Normal Inspection Respiratory: No Accessory Muscle Use Cardiovascular: Regular Rate, Rhythm, Normal Peripheral Pulses, Other (normal intervals, no ectopy) Extremity: Normal Capillary Refill, Normal Inspection Neurologic/Psychiatric: Alert, Oriented x3 Skin: Normal Color, Warm/Dry Progress/Results/Core Measures Results/Orders My Orders Orders - LUCI MORALES APRN Chest Pa/Lat (2 View) (11/22/17 11:14) Vital Signs/I&O 11/22/17 11/22/17 11/22/17 11:00 11:00 12:26 Temp 96.7 Pulse 83 65 Resp 20 20 B/P (MAP) 145/91 (109) 121/80 (109) Pulse Ox 100 100 O2 Delivery Room Air Room Air Room Air Departure Communication (Admissions) I'll give him an outpatient order for event monitor. We'll have these results sent to his primary care provider Dr. Phyllis Claire. I will also provide him with [address] Nogueira. Impression Primary Impression: Pleuritic chest pain Additional Impression: Palpitations Disposition: HOME, SELF-CARE Condition: Stable Departure-Patient Inst. Decision time for Depature: 11:22 Referrals: PHYLLIS CLAIRE MD (PCP/Family) Primary Care Physician DARLEEN NOGUEIRA MD Patient Instructions: Chest Pain That Is Not Caused by the Heart (DC), Pleuritic Chest Pain (DC) Add. Discharge Instructions: 1. Go from here directly to the heart Center where they will help you set up the event monitor. Return to ER for any concerns. All discharge instructions reviewed with patient and/or family. Voiced understanding. Scripts Unable to Obtain Active Prescriptions or Reported Meds Copy Copies To 1: PHYLLIS CLAIRE MD, PETER J APRN Nov 22, 2017 11:23
--- NOTE | 2017-11-22 11:59 | Diagnostic Imaging Report ---
PA and lateral chest at 1149 hours. INDICATION: Chest pain. There are no prior studies available for comparison. FINDINGS: The heart size is within normal limits. The lungs are clear. There is no sign of failure, pneumonia or pleural effusion. There is no pneumothorax identified. The mediastinum is not widened. The osseous structures are intact. IMPRESSION: There is no evidence for an acute cardiopulmonary abnormality. Dictated by: Dictated on workstation # [id number]
[2017-11-22 12:26] VITALS: BP 121/80
== END 2017-11-22 12:21 | disposition home or self-care (01) ==
LOC: EDUNIT# 10:52 → ER 10:53
DX: R07.81 Pleurodynia (principal); R00.2 Palpitations; F32.9 Major depressive disorder, single episode, unspecified
CPT/HCPCS: 71046; 93005

== ENCOUNTER 2019-02-11 07:58 | Emergency (ER) | payer BC ==
[~2019-02-11] VITALS: Ht 185.4 cm; Wt 77.2 kg
[2019-02-11] MEDS ORDERED: CLIN150C17 (08:38)
[2019-02-11] MEDS ORDERED: AMOX500C2 (08:38)
--- NOTE | 2019-02-11 10:57 | ED EENT ---
History of Present Illness General Chief Complaint: Dental Problems/Pain Stated Complaint: DENTAL PAIN Nursing Triage Note: AMB TO ROOM C/O TOOTH ACHE FOR 3 DAYS WAS SEEN BY HIS DAD WHO IS A DENTIST AT [facility] IS ON ANTIBIOTIC CON'T HAVE PAIN. WAS NOT GIVEN ANYTHING FOR PAIN REPORTS THAT HE HAS A APPOINTMENT IN [place] WITH A DENTIST Source: patient Exam Limitations: no limitations History of Present Illness Date Seen by Provider: Feb 11, 2019 Time Seen by Provider: 10:53 Initial Comments 28-year-old male who presents to the emergency room with complaints of dental pain for the past 3 days. He reports that he was seen by his father who is a dentist in [facility] [address] at [facility] and was put on clindamycin for infection but has not started taking them yet. He reports that he has a referral with a specialist in [place] for dental extraction. He reports that his use Tylenol for pain but is continuing to have pain. Denies facial swelling or fevers. Location: dental Associated Symptoms: No facial pain/swelling, No fever Allergies and Home Medications Allergies Coded Allergies: No Known Drug Allergies (Unverified , 05/07/17) Patient Home Medication List Home Medication List Reviewed: Yes Review of Systems Review of Systems Constitutional: see HPI; No chills, No fever Mouth: see HPI, other (upper dental pain) All Other Systems Reviewed Negative Unless Noted: Yes Past Miyaoby-Rbebas-Hypaju Hx Past Med/Social Hx: Reviewed Nursing Past Med/Soc Hx Patient Social History Alcohol Use: Denies Use Recreational Drug Use: No Drug of Choice: Heroin Smoking Status: Never a Smoker Type Used: Smokeless Tobacco 2nd Hand Smoke Exposure: No Recent Foreign Travel: No Contact w/Someone Who Travel: No Recent Infectious Disease Expo: No Recent Hopitalizations: No Past Medical History Surgeries: No Respiratory: No Cardiac: No Neurological: No Genitourinary: No Gastrointestinal: No Musculoskeletal: No Endocrine: No HEENT: No Cancer: No Psychosocial: Yes Depression Integumentary: No Family Medical History Reviewed Nursing Family Hx No Pertinent Family Hx Physical Exam Vital Signs Vital Signs - First Documented 02/11/19 08:26 Temp 35.9 Pulse 100 Resp 18 B/P (MAP) 125/70 (88) Pulse Ox 98 Height, Weight, BMI Height: 6'1.00" Weight: 148lbs. oz. 67.824083nl; 22.00 BMI Method:Stated General Appearance: WD/WN, no apparent distress Mouth/Throat: normal mouth inspection, dental tenderness (with mild erythema to the gumline without fistula. No facial swelling noted.) Cardiovascular: normal peripheral pulses, regular rate, rhythm, no edema, no gallop, no JVD, no murmur Respiratory: chest non-tender, lungs clear, normal breath sounds, no respiratory distress, no accessory muscle use Neurologic/Psychiatric: alert, normal mood/affect, oriented x 3 Skin: normal color, warm/dry Progress/Results/Core Measures Results/Orders My Orders Orders - ALDAIR CHILDERS Clindamycin Capsule (Cleocin Capsule) (02/11/19 11:15) Ketorolac Injection (Toradol Injection) (02/11/19 11:15) Acetaminophen Tablet (Tylenol Tablet) (02/11/19 11:15) Lidocaine 2% Viscous 15 Ml (Xylocaine Vi (02/11/19 11:15) Vital Signs/I&O 02/11/19 08:26 Temp 35.9 Pulse 100 Resp 18 B/P (MAP) 125/70 (88) Pulse Ox 98 Blood Pressure Mean: 88 POS Progress Progress Note : Time: 11:18 Progress Note I have seen and evaluated the patient. I've instructed him to get his antibiotics picked up from the pharmacy and start them as directed. Instructed close follow-up with his specialist in [place] for his dental extraction. He agrees with plan of care, plans for discharge, return precautions were given. Departure Impression Primary Impression: Dental abscess Disposition: 01 HOME, SELF-CARE Condition: Stable/Unchanged Departure-Patient Inst. Decision time for Depature: 11:19 Referrals: PHYLLIS CLAIRE MD (PCP/Family) Primary Care Physician Patient Instructions: Tooth Abscess (DC) Add. Discharge Instructions: Take your antibiotics as previously prescribed. Follow-up with your dentist or your referred specialist as previously planned. Tylenol Motrin as needed for pain relief. You may use the topical viscous lidocaine for additional pain relief. Be sure not to bite your tongue or cheek due to it being numb. Follow-up with your primary care within 1 week for recheck. Return back to the emergency room for worsening symptoms or concerns as needed. All discharge instructions reviewed with patient and/or family. Voiced understanding. ALDAIR CHILDERS Feb 11, 2019 10:57 POS
[2019-02-11] MEDS ORDERED: CLINDAMYCIN 150 MG (CLEOCIN) CAP PO ONE (11:15)
[2019-02-11] MEDS ORDERED: ACETAMINOPHEN 500 MG TAB (TYLENOL) PO ONE (11:15)
[2019-02-11] MEDS ORDERED: KETOROLAC 60 MG/2 ML VIAL IM ONE (11:15)
[2019-02-11] MEDS ORDERED: LIDOCAINE 2% VISCOUS 15 ML UDC PO ONE (11:15)
--- NOTE | 2019-02-11 11:17 | NUR ---
WHEN IN ROOM TO GIVE MEDS PATIENT STARTED HANGING HEAD OVER TRASH CAN AND ATTEMPT TO VOMIT. Pilar CHILDERS APRN NOTIFED MEDS ORDER FOR VOMITING.
[2019-02-11] MEDS ORDERED: ONDANSETRON 4 MG (ZOFRAN) ORAL DISSOLVE TAB PO STA (11:22)
[2019-02-11 11:49] VITALS: BP 125/70
== END 2019-02-11 11:48 | disposition home or self-care (01) ==
LOC: EDUNIT# 07:58 → ER 08:00
DX: K04.7 Periapical abscess without sinus (principal); F32.9 Major depressive disorder, single episode, unspecified
CPT/HCPCS: 96372; 99284